=== PATIENT | female | born 1940 | race Hispanic/Latino ===

== ENCOUNTER 2017-08-14 14:50 | Emergency (ER) | payer MEDICARE, BC ==
[2017-08-14] MEDS ORDERED: Iohexol 240 (50 ml) PO ONE (16:09)
[2017-08-14] MEDS ORDERED: Sodium Chloride 0.9% 1,000 ML IV STA (16:11)
--- NOTE | 2017-08-14 16:26 | ED PDOC ---
HPI: Abdomen Time Seen by Provider: 08/14/17 15:36 Chief Complaint (Nursing): Abdominal Pain Chief Complaint (Provider): Abdominal discomfort History Per: Patient History/Exam Limitations: no limitations Onset/Duration Of Symptoms: Days Outside of [place] travel?: No Current Symptoms Are (Timing): Still Present Location Of Pain/Discomfort: Diffuse Additional Complaint(s): 77yo female with past medical history of hypercholesterolemia, hypothryoidsm, presents t ED for evaluation of abdominal pain, generalized weakness and lethargy. Patient states several days ago, she was treated for a UTI with Bactrim by Dr. Villegas and after using the medication, she had lost weight unintentionally. She reports a decrease in appetite; denies any vomiting, fever , or diarrhea. No other complaints. Past Medical History Reviewed: Historical Data, Nursing Documentation, Vital Signs Vital Signs: Last Vital Signs Temp 98.6 F 08/14/17 15:28 Pulse 101 H 08/14/17 15:28 Resp 16 08/14/17 15:28 BP 134/79 08/14/17 15:28 Pulse Ox 96 08/14/17 16:30 - Medical History PMH: Hyperlipidemia, Hypothyroidism - Surgical History Surgical History: No Surg Hx - Family History Family History: States: No Known Family Hx - Allergies Allergies/Adverse Reactions: Allergies Allergy/AdvReac Type Severity Reaction Status Date / Time No Known Allergies Allergy Verified 08/14/17 15:27 Review of Systems ROS Statement: Except As Marked, All Systems Reviewed And Found Negative Constitutional: Positive for: Malaise, Weight loss. Negative for: Fever, Chills Gastrointestinal: Positive for: Abdominal Pain, Other (loss of appetite). Negative for: Nausea, Vomiting Physical Exam - Reviewed Nursing Documentation Reviewed: Yes Vital Signs Reviewed: Yes - Physical Exam Appears: Positive for: Non-toxic Head Exam: Positive for: ATRAUMATIC, NORMAL INSPECTION, NORMOCEPHALIC Skin: Positive for: Normal Color Eye Exam: Positive for: Normal appearance Neck: Positive for: Supple Cardiovascular/Chest: Positive for: Regular Rate, Rhythm Respiratory: Positive for: Normal Breath Sounds. Negative for: Respiratory Distress Gastrointestinal/Abdominal: Positive for: Normal Exam, Soft. Negative for: Tenderness Extremity: Positive for: Normal ROM. Negative for: Deformity, Swelling Neurologic/Psych: Positive for: Alert, Oriented. Negative for: Motor/Sensory Deficits - Laboratory Results Result Diagrams: 08/14/17 16:36 08/14/17 16:36 - ECG O2 Sat by Pulse Oximetry: 96 (RA) Medical Decision Making Medical Decision Making: Time: 1609 Impression: Abdominal pain rule out anemia, malignancy Plan: -- CT Abdomen w/ PO & IV Contrast -- Labs -- IV Fluids Reassess Time: 1700 Patient to be signed out to Dr. Rodas pending CT Abdomen and reassessment. Scribe Attestation: Documented by Mayra Weber acting as a scribe for Ramona Wilkes MD. Provider Attestation: All medical record entries made by the Scribe were at my direction and personally dictated by me. I have reviewed the chart and agree that the record accurately reflects my personal performance of the history, physical exam, medical decision making, and the department course for this patient. I have also personally directed, reviewed, and agree with the discharge instructions and disposition. Disposition - Patient ED Disposition Is Patient to be Admitted: Transfer of Care - Disposition Disposition: Transfer of Care Disposition Time: 17:02 Condition: STABLE Forms: [employer] (Georgian)
[2017-08-14 16:51] LABS: BASO % 0.3 % (0.0-2.0); EOS # 0.1 K/uL (0.0-0.7); EOS % 1.4 % (0.0-4.0); HEMATOCRIT 43.9 % (34.0-47.0); LYMPH # 1.4 K/uL (1.0-4.3); LYMPH % 13.6 % (20.0-40.0); MEAN CELL VOLUME 88.3 fl (81.0-99.0); MEAN CORPUSCULAR HEMOGLOBIN 29.5 pg (27.0-31.0); MEAN CORPUSCULAR HGB CONC 33.4 g/dL (33.0-37.0); MEAN PLATELET VOLUME 8.5 fl (7.2-11.7); MONO # 0.8 K/uL (0.0-0.8); MONO % 7.5 % (0.0-10.0); NEUT # 7.7 K/uL (1.8-7.0); NEUT % 77.2 % (50.0-75.0); NRBC % 0.1 % (0.0-0.0); RED CELL DISTRIBUTION WIDTH 13.3 % (11.5-14.5)
[2017-08-14 16:54] LABS: ALB/GLOB RATIO 1.3 (1.0-2.1); ALKALINE PHOSPHATASE 179 U/L (38-126); ALT/SGPT 62 U/L (9-52); AST/SGOT 32 U/L (14-36); BILIRUBIN,TOTAL 0.9 mg/dl (0.2-1.3); BLOOD UREA NITROGEN 13 mg/dl (7-17); CALCIUM 9.3 mg/dL (8.4-10.2); CARBON DIOXIDE 27 mmol/L (22-30); CHLORIDE 98 mmol/L (98-107); GFR AFRICAN-AMERICAN > 60; GLUCOSE,RANDOM 138 mg/dL (65-105); SODIUM 135 mmol/l (132-148); TOTAL PROTEIN 7.1 G/DL (6.3-8.2)
[2017-08-14] MEDS ORDERED: Iohexol 240 (50 ml) ONE (16:59)
[2017-08-14 17:02] LABS: URINE BACTERIA RARE (<OCC); URINE BILIRUBIN NEGATIVE (NEGATIVE); URINE BLOOD SMALL (NEGATIVE); URINE COLOR YELLOW (YELLOW); URINE GLUCOSE (UA) NEG (Normal); URINE KETONE NEGATIVE (NEGATIVE); URINE LEUKOCYTE ESTERASE LARGE Leu/uL (Negative); URINE PROTEIN 30 mg/dL (NEGATIVE); URINE UROBILINOGEN 0.2-1.0 mg/dL (0.2-1.0); WBC URINE 24 /hpf (0-5)
[2017-08-14 17:04] LABS: RBC URINE 8 /hpf (0-3)
[2017-08-14] MEDS ORDERED: Potassium Chloride 20 mEq ER Tab PO STA (17:11)
--- NOTE | 2017-08-14 17:12 | ED PDOC ---
- Laboratory Results Result Diagrams: 08/14/17 16:36 08/14/17 16:36 - ECG O2 Sat by Pulse Oximetry: 96 (RA) Disposition - Disposition Condition: STABLE Forms: [employer] (Kittitian) Addendum Addendum: 08/14/17 17:12 Pt signed out by Dr. Wilkes pending CT.
[2017-08-14] MEDS ORDERED: Iohexol 300 100 ML IJ ONE (19:13)
[2017-08-14] MEDS ORDERED: Sodium Chloride 0.9% 50 ML IV ONE (19:13)
[2017-08-14] MEDS ORDERED: Potassium Chloride 20 mEq ER Tab PO ONE (19:16)
--- NOTE | 2017-08-14 19:56 | ED PDOC ---
- Laboratory Results Result Diagrams: 08/14/17 16:36 08/14/17 16:36 - ECG O2 Sat by Pulse Oximetry: 96 (RA) Medical Decision Making Medical Decision Makin:00 -Patient signed out to me by Isabel Rodas, pending CT abdomen/pelvis IV & PO Contrast 20:50 CT Abdomen/Pelvis PO & IV Contrast Results FINDINGS: Lower thorax: Heart size is normal. There is a moderately large hiatal hernia. Lung bases are hyperinflated. There are atelectatic changes bilaterally. There is minimal scarring. ABDOMEN: Liver: There is fatty infiltration of the liver. Gallbladder and bile ducts: unremarkable Pancreas: Pancreas is mildly atrophic. Spleen: unremarkable Adrenals: unremarkable Kidneys and ureters: unremarkable Stomach and bowel: Stomach is partially distended with contrast and air. Rotation is normal. There is no small bowel obstruction. Ileocecal region is unremarkable. Appendix and terminal ileum are unremarkable. There is diverticulosis. Appendix: See stomach and bowel PELVIS: Bladder: unremarkable Reproductive: Uterine size is mildly prominent for age. There is a low attenuation region in the fundus possibly a fibroid. Adnexa are unremarkable. ABDOMEN and PELVIS: Intraperitoneal space: There are is no free air or free fluid. Bones/joints: Bony structures are osteopenic. There are degenerative changes. There is a convex right lumbar curve. There is compression fracture at T12. Soft tissues: There is a small fat containing umbilical hernia. Vasculature: There are multiple phleboliths. There are vascular calcifications. Lymph nodes: There is no pathologic adenopathy. IMPRESSION: Moderately large hiatal hernia; no CT findings of appendicitis or diverticulitis; fatty liver; probable uterine fibroid; age indeterminate T12 compression fracture Additional findings as described above. 915PM Saw patient at bedside with and explained results of CT. Patient states she has no pain at this time but has a "sensation" from her epigastrium to her pelvis. Relates that certain foods were makign her nauseated but no vomiting occurred and certain foods were difficult to swallow. I explained that this may be a result of the hiatal hernia which patient has had for several years, states she had an endoscopy earlier this year that showed gastritis as well. States she is no longer taking PPI and instead taking zantac. Explained that she should try PPI for 30 days and try diet modification (including foods enriched in potassium). Patient states she will try this and speak with Dr. Villegas tomorrow. Discussed importance of followup and discussed at length return precautions: unable to swallow foods and liquids, vomiting, fevers, severe abdominal pain, or other concerning symptoms. UTI also discussed. Gave all results to patient. Scribe Attestation: Documented by Von Montalvo, acting as a scribe for Sven Rodriguez MD Provider Scribe Attestation: All medical record entries made by the Scribe were at my direction and personally dictated by me. I have reviewed the chart and agree that the record accurately reflects my personal performance of the history, physical exam, medical decision making, and the department course for this patient. I have also personally directed, reviewed, and agree with the discharge instructions and disposition. Disposition - Clinical Impression Clinical Impression: Hiatal hernia, UTI (urinary tract infection), Hypokalemia - POA Present On Arrival: None - Disposition Referrals: [facility] [Outside] Ry Carson MD, PhD [Staff Provider] - Disposition: Routine/Home Disposition Time: 21:15 Condition: STABLE Prescriptions: Ciprofloxacin [Cipro] 500 mg PO BID 5 Days tab Omeprazole 20 mg PO DAILY #30 capsule. Instructions: Hiatal Hernia (ED), Urinary Tract Infection in Women (ED), Hypokalemia (ED) Forms: [employer] (Bengali)
--- NOTE | 2017-08-14 20:51 | CT ---
EXAM: CT Abdomen and Pelvis With Intravenous Contrast EXAM DATE/TIME: 08/14/2017 4:09 PM CLINICAL HISTORY: 77 years old, female; Pain and signs and symptoms; Other: Weakness, ; abdominal pain; Generalized; Additional info: Abdominal pain. Sent phy. Doc. TECHNIQUE: Axial computed tomography images of the abdomen and pelvis with intravenous contrast. All CT scans at this facility use one or more dose reduction techniques, viz.: automated exposure control; ma/kV adjustment per patient size (including targeted exams where dose is matched to indication; i.e. head); or iterative reconstruction technique. Coronal and sagittal reformatted images were created and reviewed. CONTRAST: 90 mL of [id number] administered intravenously. COMPARISON: There are no prior studies for comparison. FINDINGS: Lower thorax: Heart size is normal. There is a moderately large hiatal hernia. Lung bases are hyperinflated. There are atelectatic changes bilaterally. There is minimal scarring. ABDOMEN: Liver: There is fatty infiltration of the liver. Gallbladder and bile ducts: unremarkable Pancreas: Pancreas is mildly atrophic. Spleen: unremarkable Adrenals: unremarkable Kidneys and ureters: unremarkable Stomach and bowel: Stomach is partially distended with contrast and air. Rotation is normal. There is no small bowel obstruction. Ileocecal region is unremarkable. Appendix and terminal ileum are unremarkable. There is diverticulosis. Appendix: See stomach and bowel PELVIS: Bladder: unremarkable Reproductive: Uterine size is mildly prominent for age. There is a low attenuation region in the fundus possibly a fibroid. Adnexa are unremarkable. ABDOMEN and PELVIS: Intraperitoneal space: There are is no free air or free fluid. Bones/joints: Bony structures are osteopenic. There are degenerative changes. There is a convex right lumbar curve. There is compression fracture at T12. Soft tissues: There is a small fat containing umbilical hernia. Vasculature: There are multiple phleboliths. There are vascular calcifications. Lymph nodes: There is no pathologic adenopathy. IMPRESSION: Moderately large hiatal hernia; no CT findings of appendicitis or diverticulitis; fatty liver; probable uterine fibroid; age indeterminate T12 compression fracture Additional findings as described above.
[2017-08-14 21:08] VITALS: BP 138/78; PULSE 82; RESP 14; TEMP 98.1
[2017-08-14 21:25] VITALS: O2SAT 96
== END 2017-08-14 21:40 | disposition home or self-care (01) ==
LOC: H.ER 14:50
DX: K44.9 Diaphragmatic hernia without obstruction or gangrene (principal); N39.0 Urinary tract infection, site not specified; E87.6 Hypokalemia; K29.70 Gastritis, unspecified, without bleeding
CPT/HCPCS: 74177; 80053; 81003; 85025; 87040; 87086; 99282; J7040; Q9966; Q9967